=== PATIENT | male | born 2000 | race Caucasian/White ===

== ENCOUNTER 2018-12-28 22:53 | Emergency (ER) | payer SELFPAY ==
[2018-12-28 23:10] VITALS: BP 155/87; PULSE 116
--- NOTE | 2018-12-28 23:24 | EDM.PDOC ---
ED HPI GENERAL MEDICAL PROBLEM - General Chief Complaint: Abdominal Pain Stated Complaint: RI SIDE PAIN Time Seen by Provider: 12/28/18 23:21 Source of Information: Reports: Patient History Limitations: Reports: No Limitations - History of Present Illness INITIAL COMMENTS - FREE TEXT/NARRATIVE: pt developed painin the rt lower abdoman this afternoon. He has had this before. He was pushing a car this afternoon. He did vomit once after pushing very hard. He was sick last week with the flu. Onset: Today, Other ( started after he was pushing a car. ) Duration: Hour(s): Location: Reports: Abdomen, Other (pt has pain in the rt lower abdoman. ) Associated Symptoms: Reports: Other (pt describes the pain as a burning pain. ) Right Lower Abdomen Pain Score (Numeric/FACES): 4 - Related Data Allergies Allergy/AdvReac Type Severity Reaction Status Date / Time No Known Allergies Allergy Verified 12/09/18 13:03 Home Meds: Home Meds NK [No Known Home Meds] 12/07/13 [History] Past Medical History - Past Health History Medical/Surgical History: Denies Medical/Surgical History Gastrointestinal History: Reports: GERD Psychiatric History: Reports: Anxiety, Depression - Past Surgical History Head Surgeries/Procedures: Reports: None Social & Family History - Family History Family Medical History: Unobtainable - Tobacco Use Smoking Status *Q: Current Every Day Smoker Years of Tobacco use: 3 Packs/Tins Daily: 0.5 - Caffeine Use Caffeine Use: Reports: Energy Drinks Caffeine Use Comment: one energy drink every other day, - Recreational Drug Use Recreational Drug Use: Yes Drug Use in Last 12 Months: Yes Recreational Drug Type: Reports: Marijuana/Hashish Recreational Drug Use Frequency: Daily ED ROS GENERAL - Review of Systems Review Of Systems: See Below Constitutional: Reports: Decreased Appetite HEENT: Reports: No Symptoms Respiratory: Reports: No Symptoms Cardiovascular: Reports: No Symptoms Endocrine: Reports: No Symptoms GI/Abdominal: Reports: Abdominal Pain, Other (pt has burning abdomanal paion. ) : Reports: No Symptoms Musculoskeletal: Reports: No Symptoms Skin: Reports: No Symptoms ED EXAM, GI/ABD - Physical Exam Exam: See Below Text/Narrative:: pt arrived with pain in rt lower abdoman. He had not had sig vomiting and he has been having normal bms. He has not had a fever. He is having burning pain in the rt lower abdoman. Exam Limited By: No Limitations General Appearance: Alert, Anxious, Mild Distress Ears: Normal TMs Nose: Normal Inspection Throat/Mouth: Normal Inspection Head: Atraumatic Neck: Normal Inspection Respiratory/Chest: No Respiratory Distress Cardiovascular: Regular Rate, Rhythm GI/Abdominal Exam: Soft, Tender, Other (pt has tenderness in the rt lower abdoman. He does not have any bulges or lumps. ) (Male) Exam: No Hernia Rectal (Males) Exam: Deferred Back Exam: Normal Inspection Extremities: Normal Inspection Course - Vital Signs Last Recorded V/S: Last Vital Signs Temp 36.5 C 12/28/18 23:04 Pulse 116 H 12/28/18 23:04 Resp 18 12/28/18 23:04 BP 155/87 H 12/28/18 23:04 Pulse Ox 97 12/28/18 23:04 - Orders/Labs/Meds Orders: Active Orders 24 hr Category Date Time Status CRP [C-REACTIVE PROTEIN] [CHEM] Stat Lab 12/28/18 23:32 Received Labs: Laboratory Tests 12/28/18 12/28/18 12/28/18 Range/Units 23:28 23:32 23:32 WBC 10.6 (4.5-11.0) K/uL RBC 5.46 (4.30-5.90) M/uL Hgb 15.4 H (12.0-15.0) g/dL Hct 45.6 (40.0-54.0) % MCV 84 (80-98) fL MCH 28 (27-31) pg MCHC 34 (32-36) % Plt Count 273 (150-400) K/uL Neut % (Auto) 63 (36-66) % Lymph % (Auto) 26 (24-44) % Slope % (Auto) 7 H (2-6) % Eos % (Auto) 3 (2-4) % Baso % (Auto) 1 (0-1) % Sodium 143 (140-148) mmol/L Potassium 3.9 (3.6-5.2) mmol/L Chloride 104 (100-108) mmol/L Carbon Dioxide 27 (21-32) mmol/L Anion Gap 11.8 (5.0-14.0) mmol/L BUN 14 (7-18) mg/dL Creatinine 1.0 (0.8-1.3) mg/dL Est Cr Clr Drug Dosing 113.83 mL/min Estimated GFR (MDRD) > 60 (>60) Glucose 106 (74-106) mg/dL Calcium 9.6 (8.5-10.1) mg/dL Total Bilirubin 0.3 (0.2-1.0) mg/dL AST 16 (15-37) U/L ALT 16 (12-78) U/L Alkaline Phosphatase 129 H (46-116) U/L Total Protein 7.9 (6.4-8.2) g/dL Albumin 4.5 (3.4-5.0) g/dL Globulin 3.4 (2.3-3.5) g/dL Albumin/Globulin Ratio 1.3 (1.2-2.2) Urine Color Yellow (YELLOW) Urine Appearance Clear (CLEAR) Urine pH 6.0 (5.0-8.0) Ur Specific [place] 1.025 (1.008-1.030) Urine Protein Negative (NEGATIVE) mg/dL Urine Glucose (UA) Negative (NEGATIVE) mg/dL Urine Ketones Negative (NEGATIVE) mg/dL Urine Occult Blood Negative (NEGATIVE) Urine Nitrite Negative (NEGATIVE) Urine Bilirubin Negative (NEGATIVE) Urine Urobilinogen 0.2 (0.2-1.0) EU/dL Ur Leukocyte Esterase Negative (NEGATIVE) Urine RBC 0-5 (0-5) Urine WBC 0-5 (0-5) Ur Epithelial Cells Rare Amorphous Sediment Few Urine Bacteria Few Urine Mucus Not seen - Re-Assessments/Exams Free Text/Narrative Re-Assessment/Exam: 12/29/18 00:15 pt has a normal wbc and his crp is low. His chems are normal and urine is clear. Departure - Departure Time of Disposition: 00:15 Disposition: Home, Self-Care 01 Condition: Fair Clinical Impression: Abdominal wall pain - Discharge Information Referrals: PCP,None [Primary Care Provider] - Forms: ED Department Discharge Care Plan Goals: moit heat to the area, torodol 10mg tid for pain for the next 3 days. A Drs note was given for today. - My Orders Last 24 Hours: My Active Orders 12/28/18 23:32 CRP [C-REACTIVE PROTEIN] [CHEM] Stat - Assessment/Plan Last 24 Hours: My Active Orders 12/28/18 23:32 CRP [C-REACTIVE PROTEIN] [CHEM] Stat
[2018-12-29] MEDS ORDERED: Ketorolac 10 MG Tab PO ONE (00:13)
[2018-12-29] MEDS ORDERED: Baclofen 10 MG Tab PO ONE (00:13)
== END 2018-12-29 00:29 | disposition home or self-care (01) ==
LOC: JP.ED 22:53
DX: R10.31 Right lower quadrant pain (principal)
CPT/HCPCS: 36415; 80053; 81001; 85025; 86140; 99284; A9270

== ENCOUNTER 2019-09-17 16:16 | Emergency (ER) | payer MEDICAID, OTHER ==
[2019-09-17 16:37] VITALS: BP 149/96; PULSE 104
--- NOTE | 2019-09-17 17:10 | EDM.PDOC ---
ED HPI GENERAL MEDICAL PROBLEM - General Chief Complaint: Abdominal Pain Stated Complaint: ABDOMINAL PAIN/ FEVER Time Seen by Provider: 09/17/19 16:45 Source of Information: Reports: Patient History Limitations: Reports: No Limitations - History of Present Illness INITIAL COMMENTS - FREE TEXT/NARRATIVE: 18-year-old male who has had recurring lower abdominal pain for the past several months, tends to start on the left abdomen but today it is focused more on the right side. He was measured with a low-grade fever when he arrived to the emergency room screening for COVID, however our thermometer does not register a temperature. He has regular bowel movements, no nausea or vomiting, no shortness of breath. No history of surgeries in the past. Onset: Gradual Duration: Chronic, Waxing/Waning Location: Reports: Abdomen Associated Symptoms: Reports: Malaise. Denies: Chest Pain, Cough, Fever/Chills , Loss of Appetite, Nausea/Vomiting, Shortness of Breath - Related Data Allergies Allergy/AdvReac Type Severity Reaction Status Date / Time No Known Allergies Allergy Verified 09/17/19 16:41 Home Meds: Home Meds NK [No Known Home Meds] 12/07/13 [History] Past Medical History - Past Health History Medical/Surgical History: Denies Medical/Surgical History Gastrointestinal History: Reports: GERD Psychiatric History: Reports: Anxiety, Depression - Past Surgical History Head Surgeries/Procedures: Reports: None GI Surgical History: Reports: None Dermatological Surgical History: Reports: None Social & Family History - Family History Family Medical History: Unobtainable - Tobacco Use Smoking Status *Q: Never Smoker Second Hand Smoke Exposure: No - Caffeine Use Caffeine Use: Reports: Soda Caffeine Use Comment: one energy drink every other day, - Recreational Drug Use Recreational Drug Use: Yes Drug Use in Last 12 Months: Yes Recreational Drug Type: Reports: Marijuana/Hashish Recreational Drug Use Frequency: Daily ED ROS GENERAL - Review of Systems Review Of Systems: See Below Constitutional: Reports: Malaise. Denies: Fever, Chills HEENT: Reports: No Symptoms Respiratory: Denies: Shortness of Breath Cardiovascular: Denies: Chest Pain GI/Abdominal: Reports: Abdominal Pain. Denies: Constipation, Diarrhea, Nausea, Vomiting Skin: Reports: No Symptoms Neurological: Reports: No Symptoms Psychiatric: Reports: No Symptoms ED EXAM, GI/ABD - Physical Exam Exam: See Below Exam Limited By: No Limitations General Appearance: Alert, No Apparent Distress Eyes: Bilateral: Normal Appearance (No jaundice) Head: Atraumatic Respiratory/Chest: No Respiratory Distress, Lungs Clear Cardiovascular: Normal Peripheral Pulses, Regular Rate, Rhythm GI/Abdominal Exam: Normal Bowel Sounds, Soft, Tender (Patient reacts with tenderness to palpation across the lower abdomen especially the right lower quadrant) Course - Vital Signs Last Recorded V/S: Last Vital Signs Temp 97.6 F 09/17/19 16:41 Pulse 104 H 09/17/19 16:41 Resp 16 09/17/19 16:41 BP 149/96 H 09/17/19 16:41 Pulse Ox 98 09/17/19 16:41 - Orders/Labs/Meds Labs: Laboratory Tests 09/17/19 09/17/19 Range/Units 17:01 17:01 WBC 8.2 (4.5-11.0) K/uL RBC 5.85 (4.30-5.90) M/uL Hgb 16.6 H (12.0-15.0) g/dL Hct 49.1 (40.0-54.0) % MCV 84 (80-98) fL MCH 28 (27-31) pg MCHC 34 (32-36) % Plt Count 253 (150-400) K/uL Neut % (Auto) 77 H (36-66) % Lymph % (Auto) 16 L (24-44) % [place] % (Auto) 5 (2-6) % Eos % (Auto) 1 L (2-4) % Baso % (Auto) 1 (0-1) % Sodium 142 (140-148) mmol/L Potassium 4.1 (3.6-5.2) mmol/L Chloride 103 (100-108) mmol/L Carbon Dioxide 29 (21-32) mmol/L Anion Gap 10.2 (5.0-14.0) mmol/L BUN 19 H (7-18) mg/dL Creatinine 1.1 (0.8-1.3) mg/dL Est Cr Clr Drug Dosing 104.39 mL/min Estimated GFR (MDRD) > 60 (>60) Glucose 110 H (74-106) mg/dL Calcium 9.7 (8.5-10.1) mg/dL Meds: Medications Discontinued Medications Generic Name Dose Route Start Last Admin Trade Name Freq PRN Reason Stop Dose Admin Sodium Chloride 100 mls @ 3 mls/sec 09/17/19 17:30 09/17/19 17:27 Normal Saline IV 3 mls/sec ASDIRECTED MARK Administration Iopamidol 100 ml 09/17/19 17:30 Isovue-300 (61%) IV . DIRECTED MARK Sodium Chloride 10 ml 09/17/19 17:19 09/17/19 17:27 Saline Flush FLUSH 09/17/19 17:20 10 ml ONETIME ONE Administration - Re-Assessments/Exams Free Text/Narrative Re-Assessment/Exam: 09/17/19 17:09 CBC and BMP were obtained, we may have to CT the abdomen because of the chronic recurring nature especially the increasing pain in the right lower quadrant. 09/17/19 17:30 CBC and BMP were normal, CT of the abdomen and pelvis with IV contrast was obtained. 09/17/19 17:57 CT scan with IV contrast was normal. Patient was reassured and will continue activity and diet as tolerated. Departure - Departure Time of Disposition: 18:07 Disposition: Home, Self-Care 01 Clinical Impression: Abdominal pain Qualifiers: Abdominal location: left lower quadrant Qualified Code(s): R10.32 - Left lower quadrant pain - Discharge Information Instructions: Abdominal Pain, Adult, [id number] Referrals: PCP,None [Primary Care Provider] - Forms: ED Department Discharge Care Plan Goals: Continue diet and activity as tolerated. Consider rechecking in 1 to 2 weeks if not improving satisfactorily, or return anytime sooner if worsening such as persistent fever or increased pain. Sepsis Event Note - Evaluation Sepsis Screening Result: No Definite Risk - Focused Exam Date Exam was Performed: 09/21/19 Time Exam was Performed: 07:08
[2019-09-17] MEDS ORDERED: Sodium Chloride 0.9% 10 ML Syringe FLUSH ONE (17:19)
[2019-09-17] MEDS ORDERED: Sodium Chloride 0.9% 100 ML IV SCH (17:30)
[2019-09-17] MEDS ORDERED: Iopamidol 612 MG/ML 100 ML Bottle IV SCH (17:30)
--- NOTE | 2019-09-17 18:01 | CRLCT ---
INDICATION: recurring abdominal pain CT ABDOMEN AND PELVIS WITH CONTRAST TECHNIQUE: Multidetector CT imaging was performed through the abdomen and pelvis following intravenous contrast administration using 100mL Isovue 300. Coronal and sagittal reconstructions were generated. COMPARISON: None. FINDINGS: Included portions of the lower chest show the lung bases to be clear. The liver, spleen, gallbladder, pancreas, adrenals, and kidneys show no significant findings. Bowel loops are of normal caliber and demonstrate no wall thickening. The appendix is normal. No free fluid or free air is identified. The abdominal aorta appears normal in caliber. No abnormally enlarged lymph nodes are seen. The urinary bladder, prostate, and seminal vesicles are within normal limits. Visualized bones show no acute findings. 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 IMPRESSION: No acute abnormality identified. No cause for the patient`s symptoms is evident. JULIO C RESENDEZ MD [facility] Dictated by: Kaz Resendez MD @ 09/17/2019 18:00:44 (Electronically Signed)
== END 2019-09-17 18:07 | disposition home or self-care (01) ==
LOC: JP.ED 16:16
DX: R10.32 Left lower quadrant pain (principal); R10.31 Right lower quadrant pain
CPT/HCPCS: 36415; 74177; 80048; 85025; 99284; J7050

== ENCOUNTER 2020-03-26 17:27 | Emergency (ER) | payer MEDICAID ==
[2020-03-26 18:05] VITALS: BP 126/93; PULSE 79
--- NOTE | 2020-03-26 18:16 | EDM.PDOC ---
ED HPI GENERAL MEDICAL PROBLEM - General Chief Complaint: General Stated Complaint: BUMP ON HIP LEFT SIDE Time Seen by Provider: 03/26/20 18:09 Source of Information: Reports: Patient, RN Notes Reviewed History Limitations: Reports: No Limitations - History of Present Illness INITIAL COMMENTS - FREE TEXT/NARRATIVE: 19-year-old gentleman presents to the emergency department with a complaint of a lump in his abdomen just above his hip states his had it there for about 7 months it does cause tenderness when he pushes on it otherwise no other symptoms. - Related Data Allergies Allergy/AdvReac Type Severity Reaction Status Date / Time No Known Allergies Allergy Verified 03/26/20 18:05 Home Meds: Home Meds NK [No Known Home Meds] 12/07/13 [History] Past Medical History Gastrointestinal History: Reports: GERD Psychiatric History: Reports: Anxiety, Depression - Past Surgical History Head Surgeries/Procedures: Reports: None GI Surgical History: Reports: None Dermatological Surgical History: Reports: None Social & Family History - Family History Family Medical History: Unobtainable - Caffeine Use Caffeine Use: Reports: Other Other Caffeine Use: monster Caffeine Use Comment: one energy drink every other day, - Recreational Drug Use Recreational Drug Use: No ED ROS GENERAL - Review of Systems Review Of Systems: See Below Skin: Reports: Lumps ED EXAM, GENERAL - Physical Exam Exam: See Below Free Text/Narrative:: Abdomen is soft and nontender he does have a small palpable mass just above the iliac crest left side consistent with a lymph node enlargement is approximately 2 cm x 1 cm Exam Limited By: No Limitations General Appearance: Alert, WD/WN, No Apparent Distress Course - Vital Signs Last Recorded V/S: Last Vital Signs Temp 97.1 F 03/26/20 18:04 Pulse 79 03/26/20 18:04 Resp 16 03/26/20 18:04 BP 126/93 H 03/26/20 18:04 Pulse Ox 100 03/26/20 18:04 Departure - Departure Time of Disposition: 18:15 Disposition: Home, Self-Care 01 Condition: Fair Clinical Impression: Lymph node enlargement - Discharge Information Instructions: Lymphadenopathy Referrals: PCP,None [Primary Care Provider] - Forms: ED Department Discharge, ED Return to Work/School Form Additional Instructions: Recommend follow-up with primary care and establish consultation with general surgery for further evaluation and treatment Sepsis Event Note (ED) - Evaluation Sepsis Screening Result: No Definite Risk - Focused Exam Vital Signs: Vital Signs Temp Pulse Resp BP Pulse Ox 03/26/20 18:04 97.1 F 79 16 126/93 H 100 03/26/20 17:54 97.1 F 79 16 126/93 H 100 - Assessment/Plan Plan: Assessment Acuity = acute Site and laterality = lymph node enlargement Etiology = unknown Manifestations = none Location of injury = Home Lab values = none Plan Recommend follow-up with primary care for further evaluation This note was dictated using Pose voice recognition software please call with any questions on syntax or grammar.
== END 2020-03-26 18:34 | disposition home or self-care (01) ==
LOC: JP.ED 17:27
DX: R59.9 Enlarged lymph nodes, unspecified (principal)
CPT/HCPCS: 99282

== ENCOUNTER 2020-08-10 03:00 | Emergency (ER) | payer MEDICAID ==
[2020-08-10 03:31] VITALS: BP 156/88; PULSE 70
--- NOTE | 2020-08-10 03:31 | EDM.PDOC ---
ED HPI GENERAL MEDICAL PROBLEM - General Chief Complaint: ENT Problem Stated Complaint: LOWER R SIDE TOOTH PAIN Time Seen by Provider: 08/10/20 03:25 Source of Information: Reports: Patient History Limitations: Reports: No Limitations - History of Present Illness INITIAL COMMENTS - FREE TEXT/NARRATIVE: Darvin is a 19-year-old male presenting to the ED for evaluation of dental pain involving tooth #30. His symptoms started earlier tonight. He denies any fever or chills. He has advanced dental caries with majority of this tooth being eroded down to the pulp. - Related Data Allergies Allergy/AdvReac Type Severity Reaction Status Date / Time No Known Allergies Allergy Verified 08/10/20 03:23 Home Meds: Home Meds NK [No Known Home Meds] 12/07/13 [History] Past Medical History - Past Health History Medical/Surgical History: Denies Medical/Surgical History Gastrointestinal History: Reports: GERD Psychiatric History: Reports: Anxiety, Depression - Past Surgical History Head Surgeries/Procedures: Reports: None GI Surgical History: Reports: None Dermatological Surgical History: Reports: None Social & Family History - Family History Family Medical History: Unobtainable - Caffeine Use Caffeine Use: Reports: Other Other Caffeine Use: monster Caffeine Use Comment: one energy drink every other day, ED ROS ENT - Review of Systems Review Of Systems: See Below Constitutional: Reports: No Symptoms HEENT: Reports: Dental Pain Respiratory: Reports: No Symptoms Cardiovascular: Reports: No Symptoms ED EXAM, ENT - Physical Exam Exam: See Below Exam Limited By: No Limitations General Appearance: Alert, Mild Distress Eye Exam: Bilateral Eye: EOMI, PERRL Mouth/Throat: Normal Lips, Normal Oropharynx, Dental Pain, Dental Tenderness, Dental Trauma (Majority of tooth #30 is missing due to advanced dental caries and erosion of the tooth down to the pulp at the level of the gingiva. There is gingival erythema and edema.), Gum Swelling Head: Atraumatic, Normocephalic, Facial Tenderness (Right mandible) Neck: Normal Inspection, Supple. No: Lymphadenopathy (R), Lymphadenopathy (L) Respiratory/Chest: No Respiratory Distress Course - Re-Assessments/Exams Free Text/Narrative Re-Assessment/Exam: 08/10/20 03:30 The patient has advanced dental caries involving several teeth on the right mandible but tooth 30 is approximately 60% gone with deep erosion of the tooth down to the gingival line exposing pulp. There is gingival erythema and edema. The area is very tender to palpation. There is no significant submental or submandibular lymphadenopathy. Although the face of the right mandible is tender, there is no significant swelling. I plan is to put the patient on Toradol 10 mg 4 times daily and clindamycin 300 mg 4 times daily. The patient will need to follow-up with soon as possible with a dentist as this tooth will likely need to be completely extracted. I do not believe that narcotic medications are warranted in this situation. Departure - Departure Time of Disposition: 03:31 Disposition: Home, Self-Care 01 Clinical Impression: Infected dental caries, Dental caries extending into pulp, Gingivitis, acute - Discharge Information Referrals: PCP,None [Primary Care Provider] - Care Plan Goals: I have included 2 prescriptions in the wrenchguys mobile machine, the first 1 is Toradol 10 mg 4 times a day for control of pain and the second is clindamycin 300 mg 4 times a day for dental infection. Follow-up as soon as possible with a dentist as this tooth will likely need to be extracted. - Problem List & Annotations (1) Dental caries extending into pulp SNOMED Code(s): 150044526 Code(s): K02.9 - DENTAL CARIES, UNSPECIFIED Status: Acute Priority: Low Current Visit: Yes (2) Gingivitis, acute SNOMED Code(s): 07761218 Code(s): K05.00 - ACUTE GINGIVITIS, PLAQUE INDUCED Status: Acute Prio rity: Low Current Visit: Yes (3) Infected dental caries SNOMED Code(s): 68815224 Code(s): K02.9 - DENTAL CARIES, UNSPECIFIED; K04.7 - PERIAPICAL ABSCESS WITHOUT SINUS Status: Acute Priority: Low Current Visit: Yes - Problem List Review Problem List Initiated/Reviewed/Updated: Yes
== END 2020-08-10 03:45 | disposition home or self-care (01) ==
LOC: JP.ED 03:00
DX: K02.9 Dental caries, unspecified (principal); K05.00 Acute gingivitis, plaque induced
CPT/HCPCS: 99282

== ENCOUNTER 2020-09-21 18:05 | Emergency (ER) | payer MEDICAID ==
[2020-09-21 18:36] VITALS: BP 139/87; PULSE 95
--- NOTE | 2020-09-21 19:10 | EDM.PDOC ---
ED HPI GENERAL MEDICAL PROBLEM - General Chief Complaint: General Stated Complaint: COUGH, STOMACH ACHE, COVID EXPOSURE Time Seen by Provider: 09/21/20 19:00 Source of Information: Reports: Patient, Old Records, RN History Limitations: Reports: No Limitations - History of Present Illness INITIAL COMMENTS - FREE TEXT/NARRATIVE: 19 yo male presents requesting a test for Covid. He thinks he has been exposed. His only sx is a rare dry cough. No fever or SOB or GI sx's. Onset: Today Onset Date: 09/21/20 Duration: Hour(s): Location: Reports: Chest Quality: Reports: Other (no pain) Severity: Mild Improves with: Reports: None Worsens with: Reports: None Context: Reports: Other (See HPI) Associated Symptoms: Reports: Cough. Denies: Fever/Chills, Shortness of Breath Treatments JAVA SUPPORT ENGINEER: Reports: Other (see below) (none) - Related Data Allergies Allergy/AdvReac Type Severity Reaction Status Date / Time No Known Allergies Allergy Verified 09/21/20 18:46 Home Meds: Home Meds NK [No Known Home Meds] 12/07/13 [History] Past Medical History - Past Health History Medical/Surgical History: Denies Medical/Surgical History Gastrointestinal History: Reports: GERD, Other (See Below) Other Gastrointestinal History: cyst on left side Psychiatric History: Reports: Anxiety, Depression - Past Surgical History Head Surgeries/Procedures: Reports: None GI Surgical History: Reports: None Dermatological Surgical History: Reports: None Social & Family History - Family History Family Medical History: Unobtainable - Tobacco Use Tobacco Use Status *Q: Current Every Day Tobacco User Years of Tobacco use: 2 Packs/Tins Daily: 0.5 - Caffeine Use Caffeine Use: Reports: Energy Drinks Other Caffeine Use: monster Caffeine Use Comment: one energy drink every other day, - Recreational Drug Use Recreational Drug Use: No ED ROS GENERAL - Review of Systems Review Of Systems: See Below Constitutional: Reports: No Symptoms HEENT: Reports: No Symptoms Respiratory: Reports: Cough. Denies: Shortness of Breath, Pleuritic Chest Pain, Sputum, Hemoptysis Cardiovascular: Reports: No Symptoms GI/Abdominal: Reports: No Symptoms. Denies: Diarrhea, Nausea, Vomiting Skin: Reports: No Symptoms ED EXAM, GENERAL - Physical Exam Exam: See Below Exam Limited By: No Limitations General Appearance: Alert, WD/WN, No Apparent Distress Eye Exam: Bilateral Eye: Normal Inspection Ears: Normal External Exam, Normal Canal, Hearing Grossly Normal, Normal TMs Ear Exam: Bilateral Ear: Auricle Normal, Canal Normal, TM normal Nose: Normal Inspection, No Blood Throat/Mouth: Normal Inspection, Normal Lips, Normal Oropharynx, Normal Voice, No Airway Compromise Head: Atraumatic, Normocephalic Neck: Normal Inspection Respiratory/Chest: No Respiratory Distress, Lungs Clear, Normal Breath Sounds, No Accessory Muscle Use Cardiovascular: Regular Rate, Rhythm, No Edema Extremities: Normal Inspection Neurological: Alert, Oriented, CN II-XII Intact, Normal Cognition, No Motor/Sensory Deficits Psychiatric: Normal Affect, Normal Mood Skin Exam: Warm, Dry, Intact, Normal Color, No Rash Course - Vital Signs Last Recorded V/S: Last Vital Signs Temp 36.8 C 09/21/20 18:50 Pulse 95 09/21/20 18:50 Resp 16 09/21/20 18:50 BP 139/87 09/21/20 18:50 Pulse Ox 97 09/21/20 18:50 - Orders/Labs/Meds Orders: Active Orders 24 hr Category Date Time Status CORONAVIRUS COVID-19, MARIA LUISA Routine Lab 09/21/20 19:02 Ordered Departure - Departure Time of Disposition: 19:10 Disposition: Home, Self-Care 01 Condition: Good Clinical Impression: Cough - Discharge Information *PRESCRIPTION DRUG MONITORING PROGRAM REVIEWED*: Not Applicable *COPY OF PRESCRIPTION DRUG MONITORING REPORT IN PATIENT CARON: Not Applicable Referrals: PCP,None [Primary Care Provider] - Additional Instructions: Robitussin DM as needed for cough. Frequent hand washing and social isolation to prevent spread. Recheck with your doctor as needed. Someone will contact you when the test results come in. Sepsis Event Note (ED) - Evaluation Sepsis Screening Result: No Definite Risk - Focused Exam Vital Signs: Vital Signs Temp Pulse Resp BP Pulse Ox 09/21/20 18:50 36.8 C 95 16 139/87 97 09/21/20 18:33 36.8 C 95 16 139/87 97 - My Orders Last 24 Hours: My Active Orders 09/21/20 19:02 CORONAVIRUS COVID-19, MARIA LUISA Routine - Assessment/Plan Last 24 Hours: My Active Orders 09/21/20 19:02 CORONAVIRUS COVID-19, MARIA LUISA Routine
== END 2020-09-21 19:29 | disposition home or self-care (01) ==
LOC: JP.ED 18:05
DX: R05 Cough (principal); Z72.0 Tobacco use; Z20.822 Contact with and (suspected) exposure to COVID-19
CPT/HCPCS: 99283; U0002

== ENCOUNTER 2021-12-18 22:22 | Emergency (ER) | payer MEDICAID ==
[2021-12-18 23:25] VITALS: BP 142/92; PULSE 71
[2021-12-18] MEDS ORDERED: Ibuprofen 600 MG Tab PO ONE (23:54)
== END 2021-12-19 00:31 | disposition home or self-care (01) ==
LOC: JP.ED 22:22
DX: M79.10 Myalgia, unspecified site (principal); F17.210 Nicotine dependence, cigarettes, uncomplicated
CPT/HCPCS: 87635; 99283; A9270; U0002

== ENCOUNTER 2022-03-11 04:58 | Emergency (ER) | payer MEDICAID ==
[2022-03-11 05:13] VITALS: BP 141/86; PULSE 63
[2022-03-11] MEDS ORDERED: Amoxicillin 500 MG Cap PO ONE (05:32)
[2022-03-11] MEDS ORDERED: Ketorolac 30 MG/ML SDV IM ONE (05:32)
[2022-03-11] MEDS ORDERED: Dexamethasone 2 MG Tab PO ONE (05:33)
[2022-03-11] MEDS ORDERED: Acetaminophen/HYDROcodone 325-5 MG Tab PO ONE (05:33)
== END 2022-03-11 05:52 | disposition home or self-care (01) ==
LOC: JP.ED 04:58
DX: K04.01 Reversible pulpitis (principal); K02.9 Dental caries, unspecified; F17.210 Nicotine dependence, cigarettes, uncomplicated; Z86.16 Personal history of COVID-19
CPT/HCPCS: 96372; 99282; A9270; J1885; J8540

== ENCOUNTER 2022-05-30 21:44 | Emergency (ER) | payer MEDICAID ==
[2022-05-30 22:49] VITALS: BP 140/85; PULSE 108
== END 2022-05-30 23:03 | disposition home or self-care (01) ==
LOC: JP.ED 21:44
DX: S82.821A Torus fracture of lower end of right fibula, initial encounter for closed fracture (principal); F17.210 Nicotine dependence, cigarettes, uncomplicated; Z86.16 Personal history of COVID-19; W00.0XXA Fall on same level due to ice and snow, initial encounter
CPT/HCPCS: 73610-26-RT; 73610-RT; 99284